=== PATIENT | female | born 1980 | race Caucasian/White ===

== ENCOUNTER → 2021-04-23 15:01 | Outpatient (CLI) | payer OTHER, SELFPAY ==
[2021-04-23 17:06] LABS: HCG Quantitative /Beta subunit < 2.4 mIU/mL
== END ==
PROVIDERS: Family Provider Obstetrics & Gynecology; PCP Physician Assistant Medical; Referring Provider Obstetrics & Gynecology; Visit Provider Obstetrics & Gynecology
DX: N91.2 Amenorrhea, unspecified (principal)
CPT/HCPCS: 36415; 84702